=== PATIENT | male | born 1950 | race Caucasian/White ===

== ENCOUNTER → 2021-10-21 10:20 | Outpatient (BNVA) | payer MEDICARE, BC, SELFPAY | PROVIDERS: PCP Nurse Practitioner; Referring Provider Nurse Practitioner; Visit Provider Student in an Organized Health Care Education/Training Program | DX: M17.12 Unilateral primary osteoarthritis, left knee (principal); Z98.890 Other specified postprocedural states | CPT/HCPCS: 99203 ==

== ENCOUNTER 2021-12-27 13:14 | Outpatient (CLI) | payer MEDICARE, BC, SELFPAY ==
--- NOTE | 2021-12-27 13:00 | DI.RAD_ITS ---
Exam(s) XR KNEE LT 1V XR STANDING ALIGNMENT EXAM: XR STANDING ALIGNMENT CLINICAL HISTORY: left knee DJD TECHNIQUE: COMPARISON: CR XR KNEE LT 1V from 12/27/2021 FINDINGS: Standing alignment view and additional lateral view of the left knee with template a marianne were [place]. There is a total hip joint replacement in position on the left. The components appear [place]. There are moderate degenerative changes of the right hip. There is a total knee joint replacement position on the right. There are severe degenerative changes of the left knee predominantly involving the lateral tibiofemoral joint. There is a left knee joint effusion. IMPRESSION: RADIATION DOSE DELIVERED: Total DLP
== END 2021-12-27 13:15 | disposition home or self-care (01) ==
LOC: DIORS 13:14
PROVIDERS: PCP Nurse Practitioner; Referring Provider Nurse Practitioner; Visit Provider Physician Assistant
DX: M25.562 Pain in left knee (principal); M17.12 Unilateral primary osteoarthritis, left knee; Z96.642 Presence of left artificial hip joint; M16.11 Unilateral primary osteoarthritis, right hip; Z96.651 Presence of right artificial knee joint; M25.462 Effusion, left knee
CPT/HCPCS: 73560; 77073

== ENCOUNTER 2022-01-02 02:12 | Outpatient (CLI) | payer MEDICARE, BC, SELFPAY ==
[2022-01-02 12:58] LABS: Source Nasal/Nares
[2022-01-02 17:07] LABS: COVID-19 PCR Negative (Negative)
== END 2022-01-02 02:13 | disposition home or self-care (01) ==
LOC: LBO 02:13
PROVIDERS: PCP Nurse Practitioner; Visit Provider Student in an Organized Health Care Education/Training Program
DX: Z20.822 Contact with and (suspected) exposure to COVID-19 (principal); Z01.818 Encounter for other preprocedural examination
CPT/HCPCS: 87635; U0005

== ENCOUNTER 2022-01-04 06:07 | Day surgery (SDC) | payer MEDICARE, BC, SELFPAY ==
[2022-01-04] VITALS (15 sets, daily range): BP systolic 87–147; BP diastolic 56–87; PULSE 55–117; RESP 14–22; TEMP 36.1–36.5; O2SAT 93–100; BMI 40.6
[2022-01-04] MEDS: Celecoxib 200 MG CAP 400 MG PO (06:27)
[2022-01-04] MEDS: Acetaminophen 500 MG TAB 1000 MG PO ×4 (06:27→14:39)
[2022-01-04] MEDS: Gabapentin 300 MG CAP PO (06:28)
--- NOTE | 2022-01-04 06:55 | ANES.PREOP_ITS ---
General Info Date of Service Date Performed: 01/04/22 Height: 5 ft 3 in Weight: 104.2 kg Body Mass Index (BMI): 40.6 Surgical Procedure: Operation Date: 01/04/22 07:40 Proposed Procedure Side Surgeon p Knee Total Arthroplasty Cemented PS Left Adonis Alamo MD Meds Allergies and Home Medications Allergies Allergy/AdvReac Type Severity Reaction Status Date / Time morphine AdvReac Intermediate Other (See Unverified 01/04/22 06:19 Comment) Home Medication Medication Instructions Recorded cholecalciferol (vitamin D3) 50 50 mcg PO DAILY 10/11/21 mcg (2,000 unit) capsule diclofenac sodium 75 mg 75 mg PO BID 10/11/21 tablet,delayed release metoprolol tartrate 75 mg tablet 75 mg PO BID 10/11/21 multivitamin 1 tab PO DAILY 10/11/21 omeprazole 20 mg capsule,delayed 20 mg PO DAILY 10/11/21 release sennosides 8.6 mg-docusate sodium 1 tab-cap PO QHS 10/11/21 50 mg tablet prednisone 1 mg tablet 6 mg PO DAILY tab 12/27/21 acetaminophen 500 mg capsule 1,000 mg PO Q8H PRN PRN #90 cap 01/04/22 aspirin 81 mg tablet,delayed 81 mg PO BID #60 tab 01/04/22 release cefadroxil 500 mg capsule 500 mg PO BID #14 cap 01/04/22 celecoxib 200 mg capsule (Celebrex) 200 mg PO BID #60 cap 01/04/22 gabapentin 300 mg capsule 300 mg PO QHS #14 cap 01/04/22 oxycodone 5 mg tablet 5 mg PO Q4H PRN #18 tab 01/04/22 pantoprazole 40 mg tablet,delayed 40 mg PO DAILY #30 tab 01/04/22 release (Protonix) Current Visit Medications: Current Medications Generic Name Dose Route Start Last Admin Trade Name Freq PRN Reason Stop Dose Admin Acetaminophen 1,000 mg 01/03/22 06:00 01/04/22 06:27 Acetaminophen 500 Mg Tab PO 01/04/22 16:00 1,000 mg PREOP ANAIS Administration Acetaminophen 1,000 mg 01/04/22 08:30 Acetaminophen 500 Mg Tab PO TID ANAIS Aspirin 81 mg 01/04/22 08:30 Aspirin E.C. 81 Mg Tabec PO BID ANAIS Celecoxib 400 mg 01/03/22 06:00 01/04/22 06:27 Celecoxib 200 Mg Cap PO 01/04/22 16:00 400 mg PREOP ANAIS Administration Celecoxib 200 mg 01/04/22 08:30 Celecoxib 200 Mg Cap PO BID ANAIS Docusate Sodium 100 mg 01/04/22 06:50 Docusate Sodium 100 Mg Cap PO BID PRN PRN Constipation Gabapentin 300 mg 01/03/22 06:00 01/04/22 06:28 Gabapentin 300 Mg Cap PO 01/04/22 16:00 300 mg PREOP ANAIS Administration Gabapentin 300 mg 01/04/22 22:00 Gabapentin 300 Mg Cap PO HS ANAIS Hydromorphone HCl 0.5 mg 01/04/22 06:50 Hydromorphone 2 Mg/Ml Vial IVP Q2H PRN PRN Tranexamic Acid 1,000 mg/ 60 mls @ 360 mls/hr 01/03/22 06:00 Sodium Chloride IVPB 01/04/22 16:00 PREOP ANAIS Tranexamic Acid 1,000 mg/ 60 mls @ 360 mls/hr 01/03/22 06:00 Sodium Chloride IVPB 01/04/22 16:00 DIRECTED ANAIS Ringer's Solution 1,000 mls @ 80 mls/hr 01/04/22 06:00 IV 02/02/22 23:59 INFUSION ANAIS Cefazolin Sodium/Dextrose 2 gm in 50 mls @ 100 mls/hr 01/04/22 06:00 Ancef Duplex IVPB 02/02/22 23:59 PREOP ANAIS Cefazolin Sodium/Dextrose 1 gm in 50 mls @ 100 mls/hr 01/04/22 15:00 Ancef Duplex IVPB 01/05/22 07:29 Q8H ANAIS IV Miscellaneous Supplies 1 each 01/04/22 06:00 Iv Access IV 02/02/22 23:59 DIRECTED ANAIS Ondansetron HCl 4 mg 01/04/22 06:50 Ondansetron 4 Mg/2 Ml Vial IVP Q6H PRN PRN Nausea Oxycodone HCl 0 mg 01/04/22 06:50 Oxycodone 5 Mg Tab PO Q3H PRN PRN Pain Sodium Chloride 0 ml 01/04/22 06:00 Normal Saline Flush 10 Ml Syr IV 02/02/22 23:59 PRN PRN Sodium Chloride 0 ml 01/04/22 06:00 Normal Saline 10 Ml Vial IJ 02/02/22 23:59 DIRECTED PRN Sterile Water 0 ml 01/04/22 06:00 Water,Injection,Sterile 10 Ml Vial IJ 02/02/22 23:59 DIRECTED PRN PFSH Active Problems Active Problems: Problem Status Onset Code Primary osteoarthritis of left knee M17.12 Pseudogout M11.20 PSVT (paroxysmal supraventricular tachycardia) I47.1 Rheumatoid arthritis M06.9 GERD (gastroesophageal reflux disease) K21.9 Medical History Medical History Comments:: Metal in R knee, L hip, L orbital, R shoulder, L ankle Top Plate dentures Hard of hearing (no hearing aid today). Left ear is good ear. Surgical History Surgical History History of ankle fusion 2014 [facility] [place] of cholecystectomy History of hip replacement 1995 - Left SAUL 2005 - Revision; Dislocated and revision in 2007, 2011, 2012 [facility] [place] History of shoulder surgery Reverse total shoulder 2017 [facility] [place] History of total right knee replacement 2016 [facility] [place] History of ventral hernia 2017 [facility] [place] Left orbit trauma 1986 Right wrist fracture External fixation 1986 S/P colonoscopy Tobacco Smoking/Tobacco Use Status: Never Alcohol Alcohol Intake: never Substance Use Substance use: Never Substance use type: does not use Vital Signs and Lab Results Vital Signs Most Recent Vital Signs in EMR: Most Recent Vital Signs Temp Pulse Resp BP Pulse Ox 36.2 C L 72 18 147/87 H 96 01/04/22 06:32 01/04/22 06:32 01/04/22 06:32 01/04/22 06:32 01/04/22 06:32 Lab Results Blood Type / Crossmatch: No Data to Display Complete Blood Count: No Data to Display Complete Metabolic Panel: No Data to Display Liver Function Panel: No Data to Display Coagulation Panel: No Data to Display Cardiac Panel: No Data to Display Arterial Blood Gas: No Data to Display Venous Blood Gas: No Data to Display Pancreas Panel: No Data to Display Thyroid Panel: No Data to Display Infectious Disease: Coronavirus (COVID-19)(PCR) Negative (Negative) 01/02/22 10:13 01/02/22 Coronavirus 2019 Source Nasal/Nares 01/02/22 10:13 02/28/22 Blood Cultures: No Data to Display Toxicology Panel: No Data to Display Anesthesia Assessment and Plan Anesthesia History Personal History: No History of Anesthesia Complications Family History: No Family History of Anesthesia Complications Exercise Tolerance Exercise Tolerance: Metabolic Equivalents>4 Pertinent Negatives Pertinent Negatives: No Symptoms of GERD, No Major Cardiovascular Symptoms or Complaints, No Major Pulmonary Symptoms or Complaints and No History of CVA/TIA Cardiac & Pulmonary Exam Cardiac Exam: Normal S1/S2 Heart Sounds Pulmonary Exam: Clear Bilateral Breath Sounds Implantable Cardiac Device Does patient have a Pacemaker or an ICD?: No Airway Exam Known Difficult Airway: No Mallampati Class: 3 Mouth Opening: Normal (> 3cm) Thyromental Distance: Greater than 3 cm Neck Range of Motion: Full ROM Neck Circumference: Normal Teeth Condition: Loose or Chipped and Removable Dentures/Plates Upper ASA Classification ASA Score: ASA 3 Emergency Case?: No NPO Status NPO Status: NPO Clears >2 hours, Solids >8 hours Anesthesia Plan Resuscitation Status: Full Code Anesthesia Technique: Spinal Anesthesia Airway Planned: Natural Airway Pain Management: Surgeon and patient request nerve block Monitors Used: Standard Monitors
[2022-01-04] MEDS: Lactated Ringers 1,000 ML 80 ML IV ×2 (07:07→11:02)
--- NOTE | 2022-01-04 07:28 | W.ANESNERVE ---
Nerve Block Single Injection Procedure Date and Time Date Performed: 01/04/22 Procedure Start: 07:10 Location Where Procedure Performed Procedure Location: Day Surgery Unit Reason Performed: Postoperative Analgesia Requesting Provider: Adonis Alamo Timeout Performed Timeout Performed: Yes Monitoring Used ECG, Blood Pressure, SpO2 and See EMR for corresponding vital signs Sterility Sterility: Hand Hygiene, Surgical Cap, Surgical Mask, Sterile Gloves and Chlorhexidine Sedation Given During Procedure Sedation Given (Indicate Dose Given): Versed IV Dose:: 2mg Patient Mental Status Patient Mental Status: Sedate with meaningful communication Nerve Block 1st Nerve Block: Laterality: Left Block Type: Adductor Canal Needle / Catheter Used: 100mm SonoPlex II Local Anesthetic Bolus (Indicate Dose Given): Lidocaine used for local infiltration of skin, Injected in 3-5ml increments after negative blood aspiration and Bupivacaine 0.25% Dose:: 15ml Additives (Indicate Dose Given): None Ultrasound: Sterile probe cover and gel used Ultrasound Image Saved?: Yes Nerve Stimulator: Not Used Paresthesia: None Procedure Tolerated: No Complications and Patient tolerated well Procedure Outcome: Successful Performed By: Jagruti Elias Supervised By: Lucia Ramirez
[2022-01-04] MEDS: ceFAZolin 2 GM/50 ML BAG IVPB (07:45)
[2022-01-04] MEDS: Normal Saline 20 ML VIAL (09:11)
[2022-01-04] MEDS: Ketorolac 30 MG/ML VIAL (09:11)
[2022-01-04] MEDS: Bupivacaine 0.25% Pres-Free 30 ML VIAL (09:11)
--- NOTE | 2022-01-04 09:40 | W.PM.OP ---
Operative Note Operative Note DATE OF PROCEDURE: 01/04/22 PRE-OP DIAGNOSIS: Left Knee Arthritis with Valgus Deformity POST-OP DIAGNOSIS: same PROCEDURE: Left Total Knee Arthroplasty with Intraoperative Navigation SURGEON: Adonis Alamo CORPORATE HEALTH CONSULTANT: Lamar Rivera Refer to Anesthesia Record ESTIMATED BLOOD LOSS: 200 PATHOLOGY: none sent COMPLICATIONS: None Patient was transported to: PACU Patient's condition: stable Implants: 1. Depuy Attune Posterior Stabilized Femoral Component, Size 7 2. Depuy Attune Rotating Platform Tibial Component, Size 7 3. Depuy Attune 7x7 RP/PS Poly 4. Depuy Attune Patellar Component, Size 38 Indications: I have seen Juventino in clinic for symptoms of knee arthritis, confirmed with radiographic findings. He has exhausted nonoperative methods and was having significant limitations in daily function and desired better function and less pain. I discussed the technical details of a knee replacement. I explained the risks of the procedure to include, but not limited to, bleeding, infection, pain, stiffness, fracture, damage to nerves and vessels, damage to muscles and tendons, loosening, need for repeat procedure, blood clot and cardiopulmonary demise. Despite these risks, Juventino elected to proceed. Findings: There was significant signs of arthritis throughout the knee especially posterolaterally and the entire lateral femur. There was a prominent tibial tubercle with multiple ossicle just proximal to the tubercle which were embedded in the tendon. These were monitored but showed no signs of avlusion. Procedure Description: Juventino was greeted in the preoperative holding area where the correct side was identified and marked. The consent was reviewed with the patient and signed. The history and physical was updated. All questions were answered. Preoperative mediacations were administered: Acetaminophen 1000mg, Celebrex 400mg, and Gabapentin 300mg. An adductor canal block was then administered by the anesthesia team in the PACU. Irma was taken back to the operating room. A spinal anesthestic was attempted but was unsuccessful so a general anesthetic was administered. The patient was placed into the supine position on the operating room table. A nonsterile tourniquet was placed high onto the leg but only used for cementing. Posts were placed for positioning during the procedure. All bony prominences were well padded. Prophylactic antibiotics in the form of Cefazolin were administered. 1g of Tranxemic Acid was given intravenously within 30 minutes of incision. The left leg was then prepped with Chloraprep and draped in a standard fashion with impervious stockinette and extremity drape with Iodine impregnated skin protection. A timeout to confirm correct identity, side and site, procedure, allergies, anesthesia, and medical concerns was performed. With the knee in some flexion, a midline incision was made overlying the knee. Full thickness skin flaps were raised once the extensor mechanism was encountered. These were raised medially and laterally. Any bleeding was controlled with electrocautery. Once the extensor mechanism was fully exposed, a medial parapatellar arthrotomy was performed in a flexed position. All bleeding from the arthrotomy and the geniculate arteries was coagulated. A medial subperiosteal peel was performed with electrocautery to the midcoronal plane. The fat pad was removed while keeping the patellar tendon protected. The anterior distal femur synovium was removed for later visualization. The ACL and PCL were resected and the anterior horn of the lateral meniscus was transected. The knee was then flexed with the patella everted. Large osteophytes from the lateral tibia were removed. Large osteophytes from the lateral femur were removed. There was also a very prominent tibial tubercle. There were 2 ossicles located within the tendon just proximal to the main tubercle which were released from the anterior tibia but kept within the tendon. A single starting pin was then placed 1cm anterior to the PCL insertion and the notch in the direction of the femoral head. The OrthoAlign device was applied over the pin. It was oriented to be in line with the epicondylar axis and the trochlear groove. It was then pinned into place. The navigation computer was then turned on and calibrated. The distal femur cut was set at 0 degrees varus/valgus and 2.5 degrees flexion. The distal femur cutting guide then was positioned for a 9mm cut. The distal femur was cut with an oscillating saw while protecting the soft tissues. The tibia was then addressed. The OrthoAlign device was placed over the tibial tubercle and medial tibia and secured into position. Once again, OrthoAlign was calibrated and then set for a 0 degree varus/valgus cut and 3 degrees of posterior slope. With this locked into position, the cut thickness stylus was used to assess cut thickness. The lateral side, most involved side, was set for a 4mm cut, which corresponded to 8mm medially. This was then held in position and pinned into place with 2 additional pins and a cross pin for stability. The medial and lateral collateral ligaments were protected and the cut was performed. With this completed, it was assessed and noted to be of appropriate dimensions. The guide and OrthoAlign was removed. A spacer block was inserted and the knee was brought into extension. The 7mm spacer block provided full extension, without hyperextension and with stability of both the medial and lateral collateral ligaments was assessed. The pins from the femur and the tibia were then removed. The distal femur was then sized. The anterior stylus was placed onto the lateral ridge of the anterior femur. This indicated a size 7 femur. The external rotation of the guide was adjusted to 0 degrees to match the epicondylar axis, perpendicular to Hardik?s line. The 4-in-1 cutting guide was the placed. The posterior medial femur cut was evaluated and appeared of good thickness. The spacer block was inserted underneath the cutting guide and stability was confirmed in 90 degrees of flexion. An earline wing was used to confirm appropriate position of the anterior cut to avoid notching. This cutting guide was ensured to be flush on the cut surface and then pinned into place with headed pins. While protecting the soft tissues, quad tendon, and collateral ligaments, the anterior and posterior cuts were performed with a saw. The central two pins were removed and the posterior and anterior chamfers were cut next. The notch-cutting guide was placed. This was pinned to lateralize the femoral component as much as possible while keeping it flush on the cut surface. This was then pinned into position. A reciprocating saw was used to make the notch cut. A rasp smoothed the cut surfaces. A trial posterior stabilized femoral component was then inserted, impacted down to the cut surfaces, and the lug holes were drilled. A provisional trial tibial component was placed and the knee was brought through range of motion. There was noted to be excellent extension and flexion. There was no significant instability. The patella was tracking without thumbs. The tibial cut surface was fully exposed. The medial and lateral menisci were removed. The tibia was then sized as a 7. The tibia had been previously marked during trialing to correspond to the center of the tibial component to help with rotation. The trial was aligned to this ritchie, approximately rotated to the medial 1/3rd of the tibial tubercle. The trial was pinned into place. The tibia was prepared with a reamer and a keel punch. The knee was then brought into extension and the patella was measured as 27mm. Using the patellar clamp and cut guide, this was resected to a flat surface with at least 13mm of thickness remaining. The size 38 patella fit the best. This was oriented and then clamped into position. The lugs were drilled. The trial components were removed. The final components, except for the polyethylene were opened on the back table. The periosteal and capsular tissues, especially posteriorly, around the knee were then systematically injected with a periarticular cocktail consisting of 50cc 0.25% Marcaine, 30mg Ketorolac, 20cc of Exparal and 50cc of injectable saline. The tourniquet was then inflated to 275mmHg. The knee was thoroughly irrigated with a pulse lavage and dried. On the back table, with the implants opened, the cement was mixed. 2 batches of medium viscosity cement were prepared with vacuum assistance. After the cement was ready a small amount was placed on to the back side of the tibial component at the keel. A small amount was placed onto the posterior flange of the femur. Cement was manual pressurized and impregnated into the cut surface of the tibia. The tibial component was then inserted into the cut surface and impacted into position. Excess cement was removed and the component was reimpacted. Again, excess cement was removed and our attention was then turned to the femur. The femoral cut surface was once again dried and cement was manually impacted into the cut surface. The femoral component was lined with the lug holes and impacted. Excess cement was removed. It was ensured to be down against the cut surface. The trial polyethylene was then inserted and the leg was brought out into full extension for the duration of the cement curing process, approximately 18min. Cement was lastly manually impacted into the cut surface of the patella and the patellar button was clamped into position and held. During this process attention was turned to the gutters of the knee and for all interfaces for any excess cement. The remainder of the periarticular cocktail was then injected throughout the knee. The knee was also irrigated with Irrisept chlorhexadine solution and allowed to sit in the knee for at least 3 minutes. After the cement had finally cured, approximately 18min, the clamp was removed from the patella and the knee was taken through range of motion. A size 7mm polyethylene component provided the best range of motion and stability with less than 2mm gapping with medial and lateral stress and full extension without significant hyperextension. The patella was tracking with a no-thumbs technique. The trial poly was removed and once again the knee was checked for any loose, excess, or errant cement. The poly component was then inserted and impacted into position after cleaning and drying the tibial tray. The capsule was then reapproximated with a No. 1 Vicryl at multiple locations. The capsule was finally closed with a No. 2 Stratafix, barbed suture. The tourniquet was then released and the arthrotomy appeared watertight without significant bleeding. The second dosing of 1g TXA was started. Deep tissues were then reapproximated with 0 Vicryl and 2-0 Vicryl. The skin was closed with a running 3-0 Monocryl in a subcuticular fashion. This was reinforced with skin glue. A Mepilex silver dressing was applied along with a [id number] ENDY wrap. A CryoCuff was applied. Juventino was transferred to the hospital bed without difficulty an suffering no apparent complication. Juventino has a good prognosis. Physical therapy will start today and without restrictions, weight-bearing as tolerated. Aspirin 81mg BID will be used for DVT prophylaxis.
--- NOTE | 2022-01-04 12:06 | W.ANESPOSTOP ---
Postoperative Evaluation Date, Time and Location Date Performed: 01/04/22 Time Performed: 11:38 Patient Location: Day Surgery Unit Vital Signs Most Recent Imported Vital Signs: Most Recent Vital Signs Temp Pulse Resp BP Pulse Ox 36.2 C L 61 14 95/62 L 93 01/04/22 11:36 01/04/22 11:36 01/04/22 11:36 01/04/22 11:36 01/04/22 11:36 Pain Score Most Recent Pain Score: Most Recent Pain Score Pain Level 2 01/04/22 11:36 Assessment Mental Status: Awake (Alert & Oriented to Patient Baseline) Airway and Respiratory Function: Patent airway with normal (patient baseline) respiratory exam Cardiovascular Function: Hemodynamically Stable Hydration Status: Adequately Hydrated Nausea & Vomiting: No Nausea or Vomiting Pain: Pain is tolerable per patient Peripheral Nerve Block: Regional nerve block not resolved at time of post operative discharge
--- NOTE | 2022-01-04 13:30 | IN_ITS ---
Date of service: 01/04/22 Time of Service: 13:30 PT Notes Visit Reasons: Left TKA Physical Therapy Day Surgery Initial Evaluation Date: 01/04/2022 Referring Doctor: SONIA Matias PT Orders: PT CONSULT: Status post Ortho surgery Precautions: WBAT on left LE with AD. Patient Profile/Admitting Diagnosis: Juventino is a 71-year-old male with primary osteoarthritis of the left knee and is status post left total knee arthroplasty on postoperative day 0. PMHX: Surgical History?(Updated 12/27/21 @ 13:21 by Lily Kothari) [facility] [place] [facility] History of hip replacement 1995 - Left SAUL 2004 - Revision; Dislocated and revision in 2007, 2011, 2012 [facility] [place] Reverse total shoulder 2017 [facility] [place] total right knee replacement 2016 [facility] [place] of [facility] her[facility] 2017 [facility] [place] [facility] [place] Right wrist fracture External fixation 1986S/P colonoscopy Social History/Home Situation: Lives with significant other in a private home with no steps to enter. Independent with all mobility ADL performance using bilateral axillary crutches. Equipment Owned/DME: [id number], [employer] Subjective: Agreeable to PT consult. States that his L foot has been chronically in an outward rotated manner which he has gotten used to. Indncates 2-3/10 pain in the L knee with movement and weight bearing. Denies dizziness, headache, chest pain throughout session. Objective: General Observation: Supine in bed. ENDY wraps to L LE. Cryocuff to L knee. Mental Status: Alert and oriented x 4 Pain: 2-3/10 in the L knee at rest adn with movement ROM: Right Lower Extremity: Hip flexion WFL. Hip abduction WFL. Knee flexion WFL. Ankle dorsiflexion WFL. Ankle plantarflexion WFL. Left Lower Extremity: Hip flexion WFL. Hip abduction WFL. Knee flexion 20 degrees to 90 degrees. Knee extension -20 degrees. Ankle dorsiflexion absent. Ankle plantarflexion WFL. Strength: Right Lower Extremity: Hip flexors 5/5. Hip abductors 5/5. Knee flexors 4/5. Knee extensors 4/5. Ankle dorsiflexors 5/5. Ankle plantarflexors 5/5. Left Lower Extremity:Hip flexors 5/5. Hip abductors 5/5. Knee flexors 3-/5. Knee extensors 3-/5. Ankle dorsiflexors 1/5. Ankle plantarflexors 5/5. Sensation: Intact as to pain and light touch in bilateral lower extremities Bed Mobility/Transfers: Supine to sit standby assist Sit to stand contact-guard assist Stand to sit standby assist Bed to chair contact-guard assist Gait: Instructed patient with level surface ambulation of 150 feet with contact- guard assist using front wheeled walker with chronic external tibial rotation as well as left foot pronation seen. No increase in pain reported. Balance: Static Sitting: Normal Dynamic Sitting: Normal Static Standing: Fair Dynamic Standing: Fair Special Tests: Mobility Limitations Standardized Measure [facility] AM-PAC 6 clicks Basic Mobility Inpatient Short Form: Raw Score: 21 CMS Score: 29% deficit Informed Consent/Education: Patient instructed in purpose of PT consult. Education and training on initial set of exercises that can be done at home have been completed with patient. Assessment: Juventino demonstrates functional mobility decline requiring the use of front-wheeled walker for mobility ADL performance. Will have the support of his significant other as he recovers at home. Patient presents with clinical signs and symptoms consistent with current/admitting diagnoses that have resulted to mobility limitations, gait instability, generalized weakness, and impairment of motor control as demonstrated by the following impairment level findings: 1. Decreased strength to left knee major muscle groups 2. Impaired standing balance 3. Limitation of joint range of motion in left knee Impairments are contributing to the following functional limitations: 1. Inability to safely ambulate without assistive device 2. Increase completion time for mobility ADL performance 3. Increased fall risk Patient is assessed as a 22097 moderatecomplexity based on the following: History: 71-year-old malewith impairment level findings, functional limitations, and past medical history as indicated above Examination: Demonstrable impairment in strength, balance, and mobility level with underlying impairments and functional limitations as documented above Presentation: Evolving Decision Makin moderate complexity Goals: N/A. PT evaluation and 1-2 treatment sessions only for functional mobility training using recommended AD and for HEP instruction. Plan of Care/Treatment Plan: N/A. PT evaluation and 1-2 treatment session only for functional mobility training using recommended AD and for HEP instruction. DISCHARGE RECOMMENDATIONS: [] Home with no services [] [] Home with services [specify] [X] Home with outpatient PT. Home when medically cleared by orthopedic surgeon. Will benefit from outpatient PT services in order to facilitate return to prior level of function and to to independent community ambulation without an assistive device. [] SNF for continued rehabilitation [] [] Detention Care [] [] SNF versus LTC based on ability to participate and progress [] TREATMENT CODE/TIME: 97267 x 20 minutes, 92831 x 17 minutes beginning at 13:30 PM. Thank you for the opportunity to participate in the care of this patient. Erica Bhagat PT, DPT, CLT [facility] [place], [place]
[2022-01-04] MEDS: Tamsulosin 0.4 MG CAPCR PO (15:11)
== END 2022-01-04 15:45 | disposition home or self-care (01) ==
PROVIDERS: PCP Nurse Practitioner; Visit Provider Student in an Organized Health Care Education/Training Program
PROC: (CPT 27447; principal; 2022-01-04 07:30)
DX: M17.12 Unilateral primary osteoarthritis, left knee (principal); I47.1 Supraventricular tachycardia; K21.9 Gastro-esophageal reflux disease without esophagitis; M06.9 Rheumatoid arthritis, unspecified
CPT/HCPCS: 27447; 20985; 76942; 97162; 97530; J0690; J1885; J2001; J2250; J2405; J2704

== ENCOUNTER 2022-02-06 13:29 | Outpatient (CLI) | payer MEDICARE, BC, SELFPAY ==
--- NOTE | 2022-02-06 13:01 | DI.RAD_ITS ---
Exam(s) XR KNEE LT 1V EXAM: XR KNEE LT 1V CLINICAL HISTORY: 1ST POST OP L TKA. TECHNIQUE: 2D digital imaging was performed. COMPARISON: CR XR KNEE LT 1V from 12/27/2021 CR XR STANDING ALIGNMENT from 02/06/2022 FINDINGS: Single lateral view: There is satisfactory position alignment of the components of the prosthesis evident on this single v iew study. Vascular calcification also noted IMPRESSION: DATA REPOSITORY: RADIATION DOSE DELIVERED:
--- NOTE | 2022-02-06 13:01 | DI.RAD_ITS ---
Exam(s) XR STANDING ALIGNMENT EXAM: XR STANDING ALIGNMENT CLINICAL HISTORY: 1ST POST OP L TKA. TECHNIQUE: 2D digital imaging was performed. COMPARISON: CR XR STANDING ALIGNMENT from 12/27/2021 FINDINGS: Four views Compared to 12/27/2021 there has been interval placement of a left knee prosthesis. There are now bi lateral knee prostheses as well as a left hip prosthesis. Discrepancy in the height of the knee join ts is again noted with the left knee joint space being approximately 3 cm below the level of the righ t knee joint space. Similar findings at the hip. The superior aspect of the acetabular component of the left hip prosthesis is located approximately 2 cm below the superior aspect of the right femoral head. There is only minimal narrowing of the right hip joint space. No loosening of the left hip p rosthesis components evident nor of either knee components. There is hardware noted in the proximal left foot seen in the peripheral aspect of the field of view. Talar domes appear unremarkable bilate rally. There are no significant osseous lesions on either side. IMPRESSION: Prostheses and leg length discrepancies as described above. DATA REPOSITORY: RADIATION DOSE DELIVERED:
== END 2022-02-06 13:30 | disposition home or self-care (01) ==
LOC: DIORS 13:30
PROVIDERS: PCP Nurse Practitioner; Referring Provider Nurse Practitioner; Visit Provider Physician Assistant Surgical
DX: Z96.652 Presence of left artificial knee joint (principal); Z47.1 Aftercare following joint replacement surgery
CPT/HCPCS: 73560; 77073

== ENCOUNTER → 2022-03-13 13:05 | Outpatient (BNVA) | payer MEDICARE, BC, SELFPAY | PROVIDERS: PCP Nurse Practitioner; Referring Provider Nurse Practitioner; Visit Provider Student in an Organized Health Care Education/Training Program | DX: Z47.1 Aftercare following joint replacement surgery (principal); Z96.652 Presence of left artificial knee joint ==

== ENCOUNTER → 2022-04-24 13:54 | Outpatient (BNVA) | payer MEDICARE, BC, SELFPAY | PROVIDERS: PCP Nurse Practitioner; Referring Provider Nurse Practitioner; Visit Provider Student in an Organized Health Care Education/Training Program | DX: Z47.1 Aftercare following joint replacement surgery (principal); Z96.652 Presence of left artificial knee joint ==

== ENCOUNTER 2023-01-22 14:00 | Outpatient (CLI) | payer MEDICARE, BC, SELFPAY ==
--- NOTE | 2023-01-22 14:00 | DI.RAD_ITS ---
Exam(s) XR KNEE LT 2V AP,LAT EXAM: XR KNEE LT 2V AP,LAT CLINICAL HISTORY: ANNUAL F/U L TKA. TECHNIQUE: 2D digital imaging was performed. COMPARISON: CR XR KNEE LT 1V from 02/06/2022 FINDINGS: Two views: There is stable position alignment of the components of prosthesis. No fractures nor loosening evide nt. Vascular calcifications again noted. IMPRESSION: Stable satisfactory appearance. DATA REPOSITORY: RADIATION DOSE DELIVERED:
--- NOTE | 2023-01-22 14:30 | DI.RAD_ITS ---
Exam(s) XR SHOULDER LT COMPLETE 2+V EXAM: XR SHOULDER LT COMPLETE 2+V CLINICAL HISTORY: left shoulder pain. TECHNIQUE: 2D digital imaging was performed. COMPARISON: No exams were available for comparison FINDINGS: 3 views No evidence of fracture but there are advanced osteoarthritic degenerative changes in the glenohumera l joint with joint space narrowing and a large olsen-type osteophyte on the inferior articular surfac e of humeral head. In addition, there is upward subluxation of the humeral head in the osseous glenoid and advanced dimi nution of the subacromial space consistent with chronic full-thickness rotator cuff tear. Some degen erative change also evident in the AC joint. Incidentally noted is foreshortening of the adjacent 5th rib which is probably chronic posttraumatic. IMPRESSION: Advanced degenerative changes in the left glenohumeral joint. Findings are also suspicious for full- thickness rotator cuff chronic tear. DATA REPOSITORY: RADIATION DOSE DELIVERED:
== END 2023-01-22 14:01 ==
LOC: DIORS 07-06 12:20
PROVIDERS: PCP Nurse Practitioner; Referring Provider Nurse Practitioner; Visit Provider Student in an Organized Health Care Education/Training Program
DX: M19.012 Primary osteoarthritis, left shoulder; M75.102 Unspecified rotator cuff tear or rupture of left shoulder, not specified as traumatic; M12.812 Other specific arthropathies, not elsewhere classified, left shoulder; Z96.652 Presence of left artificial knee joint
CPT/HCPCS: 99213; 73030; 73560

== ENCOUNTER 2024-01-22 15:56 | Outpatient (CLI) | payer MEDICARE, BC, SELFPAY ==
--- NOTE | 2024-01-22 14:05 | DI.RAD_ITS ---
Exam(s) XR SHOULDER LT COMPLETE 2+V EXAM: XR SHOULDER LT COMPLETE 2+V CLINICAL HISTORY: shoulder pain, AC cyst. TECHNIQUE: 2D digital imaging was performed. COMPARISON: CR XR SHOULDER LT COMPLETE 2+V from 01/22/2023 FINDINGS: 3 views No evidence of acute fracture or dislocation. Again noted are advanced osteoarthritic degenerative changes in the glenohumeral joint with joint spa ce narrowing and an osteophyte on the inferior articular surface of the humeral head. There is soft tissue calcification in the medial subacromial space. This may be in the superior labrum. There is diminution of the subacromial space noted although this appears slightly less than previous. AC join t appears unchanged. IMPRESSION: Advanced degenerative changes in the glenohumeral joint. Minimal change from previous. DATA REPOSITORY: RADIATION DOSE DELIVERED:
== END 2024-01-22 15:57 | disposition home or self-care (01) ==
LOC: DIORS 15:56
PROVIDERS: PCP Nurse Practitioner; Referring Provider Nurse Practitioner; Visit Provider Student in an Organized Health Care Education/Training Program
DX: M19.012 Primary osteoarthritis, left shoulder (principal); M75.102 Unspecified rotator cuff tear or rupture of left shoulder, not specified as traumatic; Z96.611 Presence of right artificial shoulder joint
CPT/HCPCS: 99213; 73030

== ENCOUNTER 2025-07-08 11:10 | Outpatient (CLI) | payer MEDICARE, BC, SELFPAY ==
--- NOTE | 2025-07-08 09:15 | DI.RAD_ITS ---
Exam(s) XR SHOULDER LT COMPLETE 2+V EXAM: XR SHOULDER LT COMPLETE 2+V CLINICAL HISTORY: LEFT SHOULDER PAIN. TECHNIQUE: 2D digital imaging was performed of the left shoulder. Four images were obtained. Grashey and Y views were obtained. COMPARISON: CR XR SHOULDER LT COMPLETE 2+V from 01/22/2023 CR XR SHOULDER LT COMPLETE 2+V from 01/22/2024 FINDINGS: BONES: No acute fracture is present. No bony destructive lesion is seen. There is stable deformity of the left humeral head which may be secondary to remote trauma. JOINTS: No dislocation present. There are degenerative changes seen at both the acromioclavicular and glenohumeral joints. There is marked narrowing of the glenohumeral joint. There is also narrowing of the acromial humeral interval which can be seen with chronic rotator cuff tear. SOFT TISSUE: Normal. IMPRESSION: Marked degenerative changes seen at the glenohumeral joint and moderate degenerative changes seen at the acromioclavicular joint. DATA REPOSITORY: RADIATION DOSE DELIVERED:
== END 2025-07-08 11:11 | disposition home or self-care (01) ==
LOC: DIORS 11:10
PROVIDERS: PCP Nurse Practitioner; Referring Provider Nurse Practitioner; Visit Provider Student in an Organized Health Care Education/Training Program
DX: M12.812 Other specific arthropathies, not elsewhere classified, left shoulder (principal); Z79.01 Long term (current) use of anticoagulants; E11.9 Type 2 diabetes mellitus without complications
CPT/HCPCS: 99214; 73030

== ENCOUNTER 2025-07-17 03:48 | Outpatient (CLI) | payer MEDICARE, BC, SELFPAY ==
--- NOTE | 2025-07-17 06:15 | DI.CT_ITS ---
Exam(s) CT UPPER EXTREMITY LT WO EXAM: CT UPPER EXTREMITY LT WO CLINICAL HISTORY: SURGICAL PLANNING,arthritis lt ac joint,lt rotator cuff arthropathy,m12.812 TECHNIQUE: Imaging Protocol: Axial computed tomography images with coronal and sagittal reformatted images were created and reviewed. CONTRAST MATERIAL: Intravenous: Omnipaque 350 Contrast volume:structured data in ml Contrast route:IV - Oral: yes / no COMPARISON: CR XR SHOULDER LT COMPLETE 2+V from 01/22/2023 CR XR SHOULDER LT COMPLETE 2+V from 07/08/2025 FINDINGS: OSSEOUS: No evidence of acute fracture. There are advanced osteoarthritic degenerative changes in the glenohumeral joint with [id number] narrowing in the mid-inferior aspect of joint and a large olsen-type osteophyte on the inferior articular surface of the humeral head. There are advanced degenerative changes also noted in the ipsilateral acromioclavicular joint. The subacromial space is diminished, measuring 5 mm. No significant osseous lesions evident. Bone density is age-appropriate. Incidentally noted are multiple ipsilateral healed fractures of the left ribcage. IMPRESSION: Advanced osteoarthritic degenerative changes in the left glenohumeral joint and left AC joint. Other findings as above. RADIATION DOSE DELIVERED: 310.99mGy.cm Total DLP DATA REPOSITORY: All CT scans at this facility are submitted to the National Radiology Data Registry (NRDR) Dose Index Registry (DIR) with the [employer] ([employer]). RADIATION OPTIMIZATION: All CT scans at this facility use at least one of these dose optimization techniques: automated exposure control; mA and/or kV adjustment per patient size (includes targeted exams where dose is matched to clinical indication); or iterative reconstruction.
== END 2025-07-17 04:08 ==
LOC: DI 03:49
PROVIDERS: PCP Nurse Practitioner; Visit Provider Student in an Organized Health Care Education/Training Program
DX: M19.012 Primary osteoarthritis, left shoulder (principal)
CPT/HCPCS: 73200

== ENCOUNTER → 2025-07-28 14:05 | Outpatient (BNVA) | payer MEDICARE, BC, SELFPAY | PROVIDERS: PCP Nurse Practitioner; Referring Provider Nurse Practitioner; Visit Provider Student in an Organized Health Care Education/Training Program | DX: M19.012 Primary osteoarthritis, left shoulder (principal); M75.102 Unspecified rotator cuff tear or rupture of left shoulder, not specified as traumatic | CPT/HCPCS: 99214 ==